=== PATIENT | male | born 1975 | race Caucasian/White ===

== ENCOUNTER 2018-08-07 11:23 | Emergency (ER) | payer OTHER ==
[2018-08-07 11:27] VITALS: TEMP 97.4
[2018-08-07] MEDS ORDERED: DIAZEPAM 5 MG/ML 2 ML INJ IM ONE (11:43)
[2018-08-07] MEDS ORDERED: KETOROLAC 30 MG/ML 1 ML VIAL IM STA (11:43)
--- NOTE | 2018-08-07 11:53 | ED ---
General Adult HPI - General Chief complaint: Extremity Injury, Upper Stated complaint: shoulder & arm pain Time Seen by Provider: 08/07/18 11:32 Source: patient, RN notes reviewed, old records reviewed Mode of arrival: ambulatory Limitations: no limitations - History of Present Illness Initial comments: 42-year-old male presents with multiple history of neck pain, left shoulder pain and bilateral paresthesia to the upper extremities, worse on the left. Symptoms have progressed to the point where the patient is unable to tolerate his symptoms. He was previously taking Aleve which did this pain about he subsequently stopped taking this medication because he thought he had been taking it frequently. He has no chronic medical problems. Denies central chest pain. Denies dyspnea. Denies weakness to the left arm but does state that pain is worse with movement. No significant injury. Patient lifts heavy boxes at work which does worsen his symptoms. - Related Data Home Medications Medication Instructions Recorded Confirmed Naproxen Sodium [Aleve] 440 mg PO BID 08/07/18 08/07/18 Previous Rx's Medication Instructions Recorded Ibuprofen [Motrin] 600 mg PO Q8HR PRN #30 tab 08/07/18 Allergies Allergy/AdvReac Type Severity Reaction Status Date / Time No Known Allergies Allergy Verified 08/07/18 11:48 Review of Systems ROS Statement: Those systems with pertinent positive or pertinent negative responses have been documented in the HPI. ROS Other: All systems not noted in ROS Statement are negative. Past Medical History Past Medical History: No Reported History Past Surgical History: No Surgical Hx Reported Past Psychological History: No Psychological Hx Reported Smoking Status: Former smoker Past Alcohol Use History: Daily Past Drug Use History: None Reported General Exam Limitations: no limitations General appearance: alert, in no apparent distress Head exam: Present: atraumatic, normocephalic Eye exam: Present: normal appearance, PERRL ENT exam: Present: normal exam Neck exam: Present: normal inspection, tenderness (Patient does have some midline tenderness as well significant left paraspinal tenderness in the cervical spine.), full ROM Respiratory exam: Present: normal lung sounds bilaterally. Absent: respiratory distress, wheezes Cardiovascular Exam: Present: regular rate, normal rhythm, normal heart sounds GI/Abdominal exam: Present: soft. Absent: distended, tenderness, guarding Extremities exam: Present: normal inspection, full ROM (Range of motion at the shoulder although patient does have worsening pain with rotation specifically the left pectoral and left trapezius), other ( 2+ radial pulses) Back exam: Present: normal inspection, full ROM, tenderness, paraspinal tenderne ss. Absent: vertebral tenderness Neurological exam: Present: alert, oriented X3, motor sensory deficit Psychiatric exam: Present: normal affect, normal mood. Absent: anxious, flat affect Skin exam: Present: warm, dry, intact. Absent: cyanosis, diaphoretic Course Vital Signs 08/07/18 08/07/18 08/07/18 11:24 11:51 12:00 Temperature 97.4 F L Pulse Rate 67 74 Respiratory 20 Rate Blood Pressure 143/89 132/81 O2 Sat by Pulse 99 98 Oximetry Medical Decision Making - Medical Decision Making 42-year-old male complaining of neck pain, shoulder pain, patient has radicular symptoms probably on the left. Given Toradol, Valium in the emergency department, CT is obtained, CT shows C5 6 and 4 disc protrusion as well as describing a C6 and 7, this discourse, with patient's symptoms. Patient will be prescribed anti-inflammatories, will follow-up with orthopedic surgery. Disposition Clinical Impression: Cervical radiculopathy, Bulging of cervical intervertebral disc Disposition: HOME SELF-CARE Condition: Good Instructions (If sedation given, give patient instructions): Cervical Disc Herniation (ED), Cervical Radiculopathy (ED) Prescriptions: Ibuprofen [Motrin] 600 mg PO Q8HR PRN #30 tab PRN Reason: Pain Is patient prescribed a controlled substance at d/c from ED?: No Referrals: None,Stated [Primary Care Provider] - 1-2 days Supriya Harrison DO [Doctor of Osteopathic Medicine] - 1-2 days Time of Disposition: 12:36
--- NOTE | 2018-08-07 12:27 | CT ---
EXAMINATION TYPE: CT cervical spine wo con DATE OF EXAM: 08/07/2018 COMPARISON: None HISTORY: Neck pain CT DLP: 369.[address] of the cervical spine was performed with bone and soft tissue window settings submitted . Coronal and sagittal reconstruction is obtained. There is normal alignment and prevertebral soft tissues. I do not see evidence for fracture or sublu xation. The lung apices are clear C2-3: Within normal limits C3-4: Within normal limits C4-5: Within normal limits C5-6: Mild degenerative disc space narrowing. Posterocentral disc protrusion effaces the ventral thec al sac. No evidence for central stenosis or foraminal encroachment. C6-7: Mild degenerative disc space narrowing. Right paracentral disc bulge with mild narrowing of the right neural foramen. No evidence for central stenosis. C7-T1: Within normal limits IMPRESSION: 1. Degenerative disc disease at C5-6 with posterocentral disc protrusion. 2. Degenerative disc disease C6-7 with right paracentral disc bulge and mild right foraminal encroach ment.
[2018-08-07 13:16] VITALS: BP 125/82; PULSE 81; RESP 18
== END 2018-08-07 13:15 | disposition home or self-care (01) ==
LOC: EC 11:23
DX: M50.123 Cervical disc disorder at C6-C7 level with radiculopathy (principal); Z79.1 Long term (current) use of non-steroidal anti-inflammatories (NSAID); Z87.891 Personal history of nicotine dependence
CPT/HCPCS: 72125; 99284; 96372 ×2; J3360; J1885